=== PATIENT | female | born 1995 | race Caucasian/White ===

== ENCOUNTER 2020-12-27 19:52 | Emergency (ER) | payer MEDICAID ==
[~2020-12-27] VITALS: Ht 165.1 cm; Wt 132.3 kg
[2020-12-27] MEDS ORDERED: RABIES VACCINE (PCEC)/PF 2.5 UNITS/ML SYRINGE IM. ONE (21:00)
[2020-12-27] MEDS ORDERED: IBUPROFEN 800 MG TABLET PO ONE (21:00)
[2020-12-27] MEDS ORDERED: AMOX TR/POT CLAV 875 MG/125 MG TABLET PO ONE (21:00)
[2020-12-27] MEDS ORDERED: RABIES IMMUNE GLOBULIN/PF 300 UNITS/ML 5 ML VIAL IM. ONE (21:00)
[2020-12-27 21:30] VITALS: BP 133/82
== END 2020-12-28 02:03 | disposition home or self-care (01) ==
LOC: EMS 20:14
DX: S51.052A Open bite, left elbow, initial encounter (principal); I10 Essential (primary) hypertension; W54.0XXA Bitten by dog, initial encounter; Y93.89 Activity, other specified; Y92.89 Other specified places as the place of occurrence of the external cause; Y99.8 Other external cause status; F17.290 Nicotine dependence, other tobacco product, uncomplicated
CPT/HCPCS: 90375; 90471; 90675; 96372; 99284

== ENCOUNTER 2020-12-30 08:47 | Emergency (ER) | payer MEDICAID ==
[~2020-12-30] VITALS: Ht 165.1 cm; Wt 90.9 kg
[2020-12-30 08:48] VITALS: BP 165/108
[2020-12-30] MEDS ORDERED: RABIES VACCINE (PCEC)/PF 2.5 UNITS/ML SYRINGE IM. ONE (10:15)
== END 2020-12-30 10:29 | disposition home or self-care (01) ==
LOC: EMS 08:50
DX: S41.152D Open bite of left upper arm, subsequent encounter (principal); Z23 Encounter for immunization; I10 Essential (primary) hypertension; F12.90 Cannabis use, unspecified, uncomplicated; W54.0XXD Bitten by dog, subsequent encounter
CPT/HCPCS: 90471; 90675; 99281